=== PATIENT | female | born 1960 | race Native Hawaiian/Other Pacific Islander ===

== ENCOUNTER 2017-10-13 16:58 | Emergency (ER) | payer OTHER ==
[2017-10-13 17:05] VITALS: BP 136/75; PULSE 65; RESP 18; TEMP 98.4
[2017-10-13] MEDS ORDERED: PROPARACAINE 0.5% OPHTH DROPS 15 ML BTL BOTH EYES STA (17:32)
--- NOTE | 2017-10-13 18:15 | ED ---
Eye Problem HPI - General Chief complaint: Eye Problems Stated complaint: Eye pain Time Seen by Provider: 10/13/17 17:13 Source: patient, RN notes reviewed, old records reviewed Mode of arrival: ambulatory Limitations: no limitations - History of Present Illness Initial comments: This Patient is a 57-year-old female presents emergency department today with chief complaint of irritation over her right eye. Patient reports that she started having the pain on her right eye last night into today. She states that today when she was going to start a pickup and first artificial tears she complained of pain within the left eye. She called and second vp hr assessment earlier today. She does typically see Dr. Hunt. Patient states that she has been diagnosed with glaucoma is on Lantus process 0.005% drops daily. He's been on those since August 29. Patient reports she does typically wear glasses. No contacts. - Related Data Previous Rx's Medication Instructions Recorded Gentamicin/Prednisol AC [Pred-G 1 applic RIGHT EAR QID #1 tube 10/13/17 S.o.p. Eye Ointment] Allergies Allergy/AdvReac Type Severity Reaction Status Date / Time No Known Allergies Allergy Verified 10/13/17 17:05 Review of Systems ROS Statement: Those systems with pertinent positive or pertinent negative responses have been documented in the HPI. ROS Other: All systems not noted in ROS Statement are negative. Past Medical History Additional Past Medical History / Comment(s): glaucoma History of Any Multi-Drug Resistant Organisms: None Reported Past Surgical History: Hysterectomy Past Psychological History: No Psychological Hx Reported Smoking Status: Never smoker Past Alcohol Use History: None Reported Past Drug Use History: None Reported General Exam - General Exam Comments Initial Comments: Is a 57-year-old female. No acute distress. Limitations: no limitations General appearance: alert, in no apparent distress Head exam: Present: atraumatic, normocephalic, normal inspection Eye exam: Present: PERRL, EOMI. Absent: normal appearance (Area of white opacity over 11 oclock position of the iris. Appears as a small abrasion or early ulceration. ), scleral icterus, conjunctival injection, periorbital swelling ENT exam: Present: normal exam, mucous membranes moist Neck exam: Present: normal inspection. Absent: tenderness, meningismus, lymphadenopathy Respiratory exam: Present: normal lung sounds bilaterally. Absent: respiratory distress, wheezes, rales, rhonchi, stridor Cardiovascular Exam: Present: regular rate, normal rhythm, normal heart sounds. Absent: systolic murmur, diastolic murmur, rubs, gallop, clicks GI/Abdominal exam: Present: soft, normal bowel sounds. Absent: distended, tenderness, guarding, rebound, rigid Course Vital Signs 10/13/17 17:03 Temperature 98.4 F Pulse Rate 65 Respiratory 18 Rate Blood Pressure 136/75 O2 Sat by Pulse 95 Oximetry Medical Decision Making - Medical Decision Making 57 year old female, history of glaucoma presents with R eye pain and left eye pain. Patient pain started in R eye yesterday eventing. Pressure in R eye is 15hmmHg, L eye 14 mmHg. Patient has a corneal abrasion or ulceration over 11 oclock posiiton of R eye. Dr. Erickson was consulted and evaluated the patient. He believes that it is more of an abrasion, recommends applying Pred-G ointment to theeye four times a day, and she continues lantaprost drops for history of glaucoma. Discussed return parameters and follow up with Dr. 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 Disposition Clinical Impression: Corneal abrasion Disposition: HOME SELF-CARE Condition: Good Instructions: Corneal Abrasion (ED) Additional Instructions: Patient advised to follow-up with second vp hr assessment. Call Dr. Erickson if this is worsening within the next 24 hours. Patient should apply the eye ointment 4 times a day. Continue with your Lantaprost drops as well. Return to the emergency department if any alarming signs or symptoms occur. Prescriptions: Gentamicin/Prednisol AC [Pred-G S.o.p. Eye Ointment] 1 applic RIGHT EAR QID #1 tube Is patient prescribed a controlled substance at d/c from ED?: No Referrals: None,Stated [Primary Care Provider] - 1-2 days Catalino Erickson MD [STAFF PHYSICIAN] - 1-2 days Time of Disposition: 19:23
[2017-10-13] MEDS ORDERED: GENTAMICIN/PREDNISOL AC OPHTH OINT 3.5GM RIGHT EYE STA (19:03)
--- NOTE | 2017-10-13 23:11 | P.CON ---
Consult Note - . Consult date: 10/13/17 Assessment/Plan:: 57 y/0 female with glaucoma called earlier today with a problem of an irritated right eye starting yesterday. She stated that today the eye was more uncomfortable, photosensitive, and now reddened, but without any gross vision problems or change. She denies any overt injury, discharge, contact lens wear, pool or concepcion swimming. She has been on a medication new to her in the last month , latanoprost. Dr. Hunt her regular eye doctor was comfortable with her response. Later today she felt there was some kind of irritation occurring in the left eye while she was looking for the lubricating drops and ointment suggested to relieve the symptoms. On this second call, I suggested she proceed the ER to get a better look at the eye itself. On initial exam the eye appeared to have what might be an ulcer. I was subsequently called and then came to the ER to have a better look at the eye. Her past ocular history is largely unremarkable except for the newly diagnosed glaucoma. She denied any of the potentially contributing problems, e.g., discharge, contact lens wear, swimming, etc. On examination: Va 20/50 OD, 20/50 OS with correction, IOP ~15 mm OU Ext: normal adnexa with moderately heavy mascara Conjunctiva: focal injection mild @ one o'clock OD, otherwise white and quiet, OU Cornea: small corneal abrasion with 1 mm sean superficial cloudiness, Grade 2 and scattered WBC in subepithelial tissue @ one o'clock 250 microns from limbus. Right eye clear cornea on left, with rapid TBUT. AC: deep & quiet OU Iris: without pathology/miosis OU Lens: trace NS OU Impression: 1) corneal abrasion, right 2) dry eye 3) POAG, controlled on latanoprost Recommendation: 1) initiate topical ointment of Pred G 4 times daily, starting 2 times tonight on getting home 2) continue with latanoprost nightly both eyes, use first and allow for 5-10 minutes before ointment or tears 3) tears several times daily for discomfort 4) Call if vision or symptoms worse in AM 5) if doing well, Call Dr. Hunt's office on Sunday for follow up.
== END 2017-10-13 19:35 | disposition home or self-care (01) ==
LOC: EC 16:58
DX: S05.01XA Injury of conjunctiva and corneal abrasion without foreign body, right eye, initial encounter (principal); H40.9 Unspecified glaucoma
CPT/HCPCS: 99284